=== PATIENT | male | born 1995 | race Caucasian/White ===

== ENCOUNTER 2019-09-01 07:07 | Emergency (ER) | payer OTHER ==
[~2019-09-01] VITALS: Ht 175.3 cm; Wt 74.5 kg
[2019-09-01 07:08] VITALS: BP 119/78
== END 2019-09-01 08:38 | disposition home or self-care (01) ==
LOC: M ED 07:07
DX: R55 Syncope and collapse (principal)

== ENCOUNTER 2024-10-06 03:22 | Emergency (ER) | payer OTHER ==
[~2024-10-06] VITALS: Ht 175.3 cm; Wt 81.8 kg
[2024-10-06 04:06] LABS: HEMATOCRIT 46.5 % (42.0-52.0); HEMOGLOBIN 16.5 g/dl (13.5-17.5); MEAN CORPUSCULAR HEMOGLOBIN 32.2 pg (27.0-33.0); MEAN CORPUSCULAR HGB CONC 35.5 g/dl (32.0-36.5); MEAN CORPUSCULAR VOLUME 90.6 fl (80.0-96.0); PLATELET COUNT, AUTOMATED 251 10^3/uL (150-450); RED BLOOD COUNT 5.13 10^6/uL (4.30-6.10); WHITE BLOOD COUNT 8.1 10^3/uL (4.0-10.0)
[2024-10-06 04:12] LABS: ETHYL ALCOHOL (ETHANOL) 0.281 % (0.000-0.010)
[2024-10-06 04:14] LABS: ALBUMIN 4.2 G/DL (3.2-5.2); ALKALINE PHOSPHATASE 118 U/L (40-129); ALT/SGPT 114 U/L (7.0-40); AST/SGOT 44 U/L (<34); BILIRUBIN,DIRECT 0.1 MG/DL (<0.4); BILIRUBIN,TOTAL 0.3 MG/DL (0.3-1.2); BLOOD UREA NITROGEN 12 MG/DL (9-23); CARBON DIOXIDE LEVEL 24 MMOL/L (20-31); CHLORIDE LEVEL 111 MMOL/L (98-107); CREATININE FOR GFR 0.83 MG/DL (0.70-1.30); GLOMERULAR FILTRATION RATE > 60.0 (>60); GLUCOSE, FASTING 101 MG/DL (60-100); POTASSIUM SERUM 4.2 MMOL/L (3.5-5.1); SALICYLATE LEVEL < 3.0 MG/DL (<30); SODIUM LEVEL 148 MMOL/L (136-145); THYROID STIMULATING HORMONE 1.299 uIU/ML (0.55-4.78); TOTAL PROTEIN 7.2 G/DL (5.7-8.2)
[2024-10-06 04:19] LABS: AMPHETAMINES LEVEL URINE NEGATIVE (NEGATIVE); BENZODIAZEPINES URINE NEGATIVE (NEGATIVE); CANNABINOIDS URINE NEGATIVE (NEGATIVE); PHENCYCLIDINE URINE NEGATIVE (NEGATIVE)
[2024-10-06 04:20] LABS: BARBITURATES URINE NEGATIVE (NEGATIVE); COCAINE METABOLITE URINE NEGATIVE (NEGATIVE); METHADONE URINE NEGATIVE (NEGATIVE); OPIATES URINE NEGATIVE (NEGATIVE)
[2024-10-06] MEDS ORDERED: LORazepam 2 MG TAB PO PRN (08:05)
[2024-10-06] MEDS: MULTIVITAMINS/MINERALS THERAP 1 TAB PO SCH (08:30)
[2024-10-06] MEDS: FOLIC ACID 1MG TAB PO SCH (08:30)
[2024-10-06] MEDS: THIAMINE 100 MG TAB PO SCH (08:30)
[2024-10-06] MEDS ORDERED: HOME MED LIST COMPLETE! XX SCH (11:40)
[2024-10-06 14:01] VITALS: BP 138/87; TEMP 98.9; O2SAT 98
== END 2024-10-06 14:03 | disposition home or self-care (01) ==
LOC: M ED 03:22
DX: F10.120 Alcohol abuse with intoxication, uncomplicated (principal)